=== PATIENT | male | born 1960 | race Caucasian/White ===

== ENCOUNTER 2019-10-16 11:02 | Observation (INO) | payer BC, SELFPAY ==
[2019-10-16] VITALS (22 sets, daily range): BP systolic 135–170; BP diastolic 73–95; PULSE 43–73; RESP 12–24; TEMP 36.2–37.1; O2SAT 94–100; BMI 29.2
--- NOTE | 2019-10-16 | PATH_ITS ---
[facility] Accession Number: [id number] . 01 Material submitted: . appendix - APPENDIX . 01 Clinical history: . LOWER ABDOMINAL PAIN . 02 Diagnosis: Appendix, Appendectomy: Acute suppurative appendicitis with serositis. Negative for dysplasia or malignancy. [facility] 10/19/2019 1207 Local . 02 Electronically signed: . Alena Cannon MD, Pathologist NPI- [id number] . 01 Gross description: . Received in formalin, labeled with the patient's name, MRN and appendix, is a 5.5 cm in length by 0.6 cm in diameter intact appendix with an attached 5.0 x 2.0 x 0.9 cm mesoappendix. The external surface of the appendix is brown-hernandez and smooth with attached hernandez-white exudate. The appendiceal wall measures up to 0.3 cm and the lumen measures 0.2 cm. The lumen contains brown-hernandez fecal material. No discrete lesions are identified. The appendiceal margin (inked black), mid-appendix, and entire distal tip of the appendix, bisected, are submitted in cassette A1. (SD/cmc10 [id number]) /MRV 10/18/2019 2344 Local . 02 Pathologist provided ICD-10: K35.80 . 02 CPT . 874159 Performed at: 01 [facility] [address], [place], [place] [id number] MD Doni Aguilar MD Phone: [phone] Performed at: 02 [facility] [address] [place], [place] [id number] MD Alena Cannon MD Phone: [phone]
[2019-10-16 11:29] LABS: Add Manual Diff / Slide Review NO; Basophils Absolute Auto 0 /uL (0-100); Basophils Percent Auto 0.6 % (0-2); Eosinophils Absolute Auto 100 /uL (0-450); Eosinophils Percent Auto 1.5 % (2-4); Lymphocytes Absolute Auto 2000 /uL (1100-4500); Mean Corpuscular HGB Conc 34.1 % (30-36); Mean Corpuscular Hemoglobin 31.1 PG (26-34); Mean Corpuscular Volume 91.3 fL (80-100); Monocytes Absolute Auto 700 /uL (0-900); Monocytes Percent Auto 9.2 % (3-14); Neutrophils Absolute Auto 4600 /uL (1500-7000); Neutrophils Percent Auto 61.7 % (50-75); Platelet Count 225 X10^3/uL (150-400); Red Blood Cell Count 5.15 X10^6/uL (4.5-5.9); Red Cell Distribution Width 13.7 % (11.6-14.8); White Blood Cell Count 7.5 X10^3/uL (4.5-11.0)
[2019-10-16 11:35] LABS: Prothrombin Time 11.7 SECONDS (10.1-12.7)
[2019-10-16 11:38] LABS: PTT Partial Thromboplastin Tim 30 SECONDS (26.4-36.2)
--- NOTE | 2019-10-16 11:38 | ED.ABDPAIN ---
HPI - Abdominal Pain <KERRI Taylor-BC - Last Filed: 10/16/19 15:04> General Chief Complaint: Abdominal Pain Stated Complaint: lower abdominal pain Time Seen by Provider: 10/16/19 11:17 Source: patient Mode of arrival: Family Vehicle Limitations: no limitations History of Present Illness HPI narrative: The patient is a very pleasant 59-year-old male nonsmoker with history of GERD who presents with a chief complaint of lower abdominal pain and cramping since last night. He states that it comes and goes, started in his right lower quadrant, radiates around to his left lower quadrant. He denies any fevers. He complains of nausea but no vomiting. He does have decreased appetite. He had a loose bowel movement this morning. He has not taken anything to feel better. Denies any dysuria urgency or frequency. Denies any testicular pain. He denies any abdominal surgical history or abdominal medical history. He states that he started having pain at 3:00 a.m. yesterday. Related Data Home Medications Medication Instructions Recorded Confirmed latanoprost 1 drp EYE-BOTH DAILY 10/16/19 10/16/19 omeprazole 20 mg PO DAILY 10/16/19 10/16/19 phenylephrine HCl 10 mg PO Q4-6H PRN 10/16/19 10/16/19 Allergies Allergy/AdvReac Type Severity Reaction Status Date / Time amoxicillin Allergy Hives Verified 10/16/19 11:14 Review of Systems <KERRI Taylor-BC - Last Filed: 10/16/19 15:04> Review of Systems Narrative: GENERAL: Denies chills, fatigue, malaise, fever, sweats. HEENT: Denies sinus pain, ear pain, sore throat, difficulty swallowing, dizziness. RESPIRATORY: Denies dyspnea, cough, wheezing, hemoptysis, sputum. CARDIOVASCULAR: Denies chest pain, palpitations, orthopnea, edema, GASTROINTESTINAL: See HPI : Denies dysuria, frequency, incontinence, hematuria, urinary retention. MUSCULOSKELETAL: denies weakness, joint pain, or bony pain SKIN: Denies rash, skin lesions, or other NEUROLOGIC: Denies weakness, headache, numbness, change in speech, confusion, seizures, incoordination. PSYCHIATRIC: No concerning psychosocial issues. 12 point review of systems is negative except for those stated above Patient History <SAMIA Taylor - Last Filed: 10/16/19 15:04> Medical History (Updated 10/16/19 @ 14:56 by SAMIA Taylor) GERD (gastroesophageal reflux disease) (Acute) Surgical History (Updated 10/16/19 @ 15:09 by Alena Boykin RN) Status post left foot surgery (Acute) Social History household members: spouse Smoking Status: Never smoker alcohol intake: current Smoking Status: Never smoker alcohol intake frequency: holidays/special occasions only Substance Use Type: does not use Exam <SAMIA Taylor - Last Filed: 10/16/19 15:04> Narrative Exam Narrative: GENERAL: This is a well-nourished, well-developed patient, no acute distress lying on stretcher HEAD: Atraumatic. Normocephalic. No temporal or scalp tenderness. EYES: Pupils equal round and reactive. Extraocular motions intact. No scleral icterus. No injection or drainage. ENT: Nose without bleeding, purulent drainage or septal hematoma. Throat without erythema, tonsillar hypertrophy or exudate. Uvula midline. Airway patent. NECK: Trachea midline. No JVD or lymphadenopathy. Supple, nontender, no meningeal signs. CARDIOVASCULAR: Regular rate and rhythm RESPIRATORY: Clear to auscultation. Breath sounds equal bilaterally. No wheezes, rales, or rhonchi. No cough. No increased respiratory effort. No accessory muscle use. GASTROINTESTINAL: Abdomen soft, active bowel sounds all 4 quadrants, no pain to palpation right upper quadrant left upper quadrant, negative [place] sign. Pain to palpation right lower quadrant, pain to palpation left lower quadrant with rebound tenderness. Slight guarding noted both lower quadrants. Negative heel tap test. EXTREMITIES: No clubbing, cyanosis, or edema. No joint tenderness, effusion, or edema noted. BACK: Nontender without deformity or crepitance. No flank tenderness. NEURO: AOx3. SKIN: No rash or erythema on visible skin Initial Vital Signs Initial Vital Signs: Vital Signs Temperature 98.2 F 10/16/19 11:07 Pulse Rate 59 L 10/16/19 11:07 Respiratory Rate 18 10/16/19 11:07 Pulse Oximetry 100 10/16/19 11:07 <Jenny Gonzalez MD - Last Filed: 10/16/19 16:19> Initial Vital Signs Initial Vital Signs: Vital Signs Temperature 98.2 F 10/16/19 11:07 Pulse Rate 59 L 10/16/19 11:07 Respiratory Rate 18 10/16/19 11:07 Pulse Oximetry 100 10/16/19 11:07 Scores <SAMIA Taylor - Last Filed: 10/16/19 15:04> GCS Bill coma scale eye opening: Spontaneous Bill coma scale verbal response: Orientated [place] coma scale motor response: Obey commands [place] coma scale total score: 15 Course <SAMIA Taylor - Last Filed: 10/16/19 15:04> Orders Ordered: ED Orders 10/16/19 11:15 EKG-12 Lead Stat 10/16/19 11:25 Complete Blood Count AUTO DIFF Stat Comprehensive Metabolic Panel Stat Lipase Stat Partial Thromboplastin Time Stat Prothrombin Time INR Stat 10/16/19 12:20 CT abdomen pelvis w con Stat Ciprofloxacin (Cipro) 400 mg in 200 mls @ 200 mls/hr IV NOW [facility] Last Infusion: 10/16/19 14:54 Dose: 0 mls/hr Documented by: Admin: 10/16/19 13:41 Dose: 200 mls/hr Documented by: BONITA Lactated Ringer's (Lactated Ringers) 1,000 mls @ 42 mls/hr IV CONT TONY Last Admin: 10/16/19 16:08 Dose: 42 mls/hr Documented by: ORALIA Consultations Consultation #1: Spoke with Radiology, who states that patient has acute appendicitis. The spoke with the lab regarding rapid coronavirus testing and discussed findings with patient. Plan is to call surgery. Time: 13:17 Vital Signs Vital signs: Vital Signs - 8 hr 10/16/19 11:07 10/16/19 11:43 10/16/19 11:44 Temperature 98.2 F Pulse Rate 59 L 57 L 56 L Respiratory Rate 18 24 14 Blood Pressure 170/89 H Pulse Oximetry 100 95 98 10/16/19 12:00 10/16/19 12:30 10/16/19 13:00 Temperature Pulse Rate 59 L 54 L 56 L Respiratory Rate 18 18 24 Blood Pressure Pulse Oximetry 98 98 98 10/16/19 14:00 Temperature Pulse Rate 57 L Respiratory Rate 18 Blood Pressure Pulse Oximetry 97 <Jenny Gonzalez MD - Last Filed: 10/16/19 16:19> Orders Ordered: ED Orders 10/16/19 11:15 EKG-12 Lead Stat 10/16/19 11:25 Complete Blood Count AUTO DIFF Stat Comprehensive Metabolic Panel Stat Lipase Stat Partial Thromboplastin Time Stat Prothrombin Time INR Stat 10/16/19 12:20 CT abdomen pelvis w con Stat Ciprofloxacin (Cipro) 400 mg in 200 mls @ 200 mls/hr IV NOW [facility] Last Infusion: 10/16/19 14:54 Dose: 0 mls/hr Documented by: Admin: 10/16/19 13:41 Dose: 200 mls/hr Documented by: BONITA Lactated Ringer's (Lactated Ringers) 1,000 mls @ 42 mls/hr IV CONT [facility] Last Admin: 10/16/19 16:08 Dose: 42 mls/hr Documented by: ORALIA Vital Signs Vital signs: Vital Signs - 8 hr 10/16/19 11:07 10/16/19 11:43 10/16/19 11:44 Temperature 98.2 F Pulse Rate 59 L 57 L 56 L Respiratory Rate 18 24 14 Blood Pressure 170/89 H Pulse Oximetry 100 95 98 10/16/19 12:00 10/16/19 12:30 10/16/19 13:00 Temperature Pulse Rate 59 L 54 L 56 L Respiratory Rate 18 18 24 Blood Pressure Pulse Oximetry 98 98 98 10/16/19 14:00 Temperature Pulse Rate 57 L Respiratory Rate 18 Blood Pressure Pulse Oximetry 97 MDM - Abdominal Pain <KERRI Taylor-NIKOLAS - Last Filed: 10/16/19 15:04> Differential Diagnosis Differential diagnosis: Likely abdominal pain, acute appendicitis, constipation and diverticulitis Lab Data Result diagrams: 10/16/19 11:25 10/16/19 11:25 Labs: Lab Results 10/16/19 10/16/19 10/16/19 Range/Units 11:25 11:25 11:25 WBC 7.5 (4.5-11.0) X10^3/uL RBC 5.15 (4.5-5.9) X10^6/uL Hgb 16.0 (13.5-17.5) g/dL Hct 47.0 (41-53) % MCV 91.3 (80-100) fL MCH 31.1 (26-34) PG MCHC 34.1 (30-36) % RDW 13.7 (11.6-14.8) % Plt Count 225 (150-400) X10^3/uL Neut % (Auto) 61.7 (50-75) % Lymph % (Auto) 27.0 (25-40) % [place] % (Auto) 9.2 (3-14) % Eos % (Auto) 1.5 L (2-4) % Baso % (Auto) 0.6 (0-2) % Neut # (Auto) 4600 (7956-8042) /uL Lymph # (Auto) 2000 (3184-6896) /uL [place] # (Auto) 700 (0-900) /uL Eos # (Auto) 100 (0-450) /uL Baso # (Auto) 0 (0-100) /uL PT 11.7 (10.1-12.7) SECONDS INR 1.0 (0.9-1.3) APTT 30 (26.4-36.2) SECONDS Sodium 137 (137-145) mmol/L Potassium 4.2 (3.4-5.1) mmol/L Chloride 103 (98-107) mmol/L Carbon Dioxide 28 (22-32) mmol/L BUN 10 (9-20) mg/dL Creatinine 0.82 (0.66-1.25) mg/dL Estimated GFR > 60.0 (>60) mL/min BUN/Creatinine Ratio 12.2 (6-22) Glucose 105 H (70-100) mg/dL Calcium 9.6 (8.4-10.2) mg/dL Total Bilirubin 1.3 (0.2-1.3) mg/dL AST 36 (17-59) IU/L ALT 39 (<50) IU/L Alkaline Phosphatase 98 (38-126) U/L Total Protein 8.5 H (6.3-8.2) g/dL Albumin 4.9 (3.5-5.0) g/dL Globulin 3.6 (1.7-4.1) g/dL Albumin/Globulin Ratio 1.4 (1.0-2.8) Lipase 67 (23-300) U/L COVID-19 PCR (Negative) 10/16/19 Range/Units 13:15 WBC (4.5-11.0) X10^3/uL RBC (4.5-5.9) X10^6/uL Hgb (13.5-17.5) g/dL Hct (41-53) % MCV (80-100) fL MCH (26-34) PG MCHC (30-36) % RDW (11.6-14.8) % Plt Count (150-400) X10^3/uL Neut % (Auto) (50-75) % Lymph % (Auto) (25-40) % [place] % (Auto) (3-14) % Eos % (Auto) (2-4) % Baso % (Auto) (0-2) % Neut # (Auto) (3029-6235) /uL Lymph # (Auto) (7500-9916) /uL [place] # (Auto) (0-900) /uL Eos # (Auto) (0-450) /uL Baso # (Auto) (0-100) /uL PT (10.1-12.7) SECONDS INR (0.9-1.3) APTT (26.4-36.2) SECONDS Sodium (137-145) mmol/L Potassium (3.4-5.1) mmol/L Chloride (98-107) mmol/L Carbon Dioxide (22-32) mmol/L BUN (9-20) mg/dL Creatinine (0.66-1.25) mg/dL Estimated GFR (>60) mL/min BUN/Creatinine Ratio (6-22) Glucose (70-100) mg/dL Calcium (8.4-10.2) mg/dL Total Bilirubin (0.2-1.3) mg/dL AST (17-59) IU/L ALT (<50) IU/L Alkaline Phosphatase (38-126) U/L Total Protein (6.3-8.2) g/dL Albumin (3.5-5.0) g/dL Globulin (1.7-4.1) g/dL Albumin/Globulin Ratio (1.0-2.8) Lipase (23-300) U/L COVID-19 PCR Negative (Negative) Point of care testing: Urine Dip Bedside Urine Glucose Negative Bedside Urine Bilirubin - Negative Bedside Urine Ketone - Negative Urine Specific [place] 1.015 Bedside Urine Occult Blood - Negative Bedside Urine pH 6.0 Bedside Urine Protein - Negative Bedside Urine Urobilinogen - Negative Bedside Urine Nitrite - Negative Bedside Urine Leukocytes - Negative Esterase Imaging Data CT scan - abdomen/pelvis: Radiologist's Impression: [address] [place] [id number] Scan Report Signed Patient: Elan Saab AMR#: [id number] : 1960Acct:[id number] Age/Sex: 59 / MDate of Service: 10/16/19 Loc: ED Accession Number: [id number] Procedure: CT abdomen pelvis w con Ordering Provider: Carina Samano-BC PROCEDURE: CT ABDOMEN PELVIS W CON INDICATIONS: RLQ, LLQ pain TECHNIQUE: After the administration of intravenous contrast, 5 mm thick sections acquired from the diaphragm to the symphysis. 5 mm coronal and sagittal reformats were acquired. For radiation dose reduction, the following was used: automated exposure control, adjustment of mA and/or kV according to patient size. COMPARISON: [facility], CT, ABDOMEN/PELVIS WITH CONTRAST, 06/22/2014, 13:54. FINDINGS: Image quality: Excellent. ABDOMEN: Lung bases: There is a small carlito-fissural nodule in the right lower lobe along the major fissure measuring up to 3 mm which appears stable compared to the prior study. Mild dependent atelectasis is demonstrated bilaterally. Heart size is normal. There is a small hiatal hernia. Solid organs: There is diffuse hypoattenuation of the liver consistent with fatty infiltration.. The gallbladder appears within normal limits without calcified gallstones. Biliary system is non-dilated. Pancreas enhances normally. No peripancreatic fat stranding or fluid collections. No pancreatic duct dilatation. The spleen is normal in size. No adrenal nodules. Kidneys demonstrate no hydronephrosis. Peritoneum and bowel: Bowel loops demonstrate normal wall thickness and caliber. The appendix is distended with mild wall thickening and periappendiceal fat stranding consistent with acute appendicitis. No free fluid or air. Nodes and vessels: No retroperitoneal or mesenteric adenopathy by size criteria. Aorta and inferior vena cava are normal in size. Miscellaneous: No ventral hernias. PELVIS: Genitourinary: Bladder wall thickness is normal. Miscellaneous: No inguinal hernias or adenopathy. Bones: No suspicious bony lesions. No vertebral body compression fractures. IMPRESSION: 1. Findings consistent with acute appendicitis without abscess or other evidence of perforation. Findings discussed with Carina Milan on October 16, 2019 at 1:05 p.m. Dictated by: Doni Benítez M.D. on 10/16/2019 at 12:45 Approved by: Doni Benítez M.D. on 10/16/2019 at 13:14 ECG Data Attestation: I personally reviewed and interpreted this ECG as follows: Interpretation: Sinus bradycardia. Ventricular rate 55. P.r. interval 150. QRS 96. No ectopy noted. viewed by Dr Gonzalez MDM Narrative Medical decision making narrative: The patient is a delightful 59-year-old male who presents with a chief complaint of abdominal pain since yesterday. He has no leukocytosis, though given his pain on exam, I obtained a CT abdomen pelvis with contrast. This was concerning for acute appendicitis. Given this finding, I spoke with Luis A,, surgery on-call, who suggested giving the patient ciprofloxacin due to his allergy to amoxicillin. Patient states he has tolerated Cipro in the past. Rapid coronavirus testing was obtained given facility protocol. Patient declined pain and nausea meds throughout his stay in the emergency department, remained NPO sister any breakfast this morning at 7:30 a.m.. Surgery came down to evaluate the patient elected to take him to the operating room. Patient was transferred to OR staff care at approximately 3:00 p.m.. He declined pain and nausea meds throughout his stay in the emergency department, expressed appreciation for care today. He states understanding of surgery, and states that ?things are going as best as possible. <Jenny Gonzalez MD - Last Filed: 10/16/19 16:19> Lab Data Labs: Lab Results 10/16/19 10/16/19 10/16/19 Range/Units 11:25 11:25 11:25 WBC 7.5 (4.5-11.0) X10^3/uL RBC 5.15 (4.5-5.9) X10^6/uL Hgb 16.0 (13.5-17.5) g/dL Hct 47.0 (41-53) % MCV 91.3 (80-100) fL MCH 31.1 (26-34) PG MCHC 34.1 (30-36) % RDW 13.7 (11.6-14.8) % Plt Count 225 (150-400) X10^3/uL Neut % (Auto) 61.7 (50-75) % Lymph % (Auto) 27.0 (25-40) % [place] % (Auto) 9.2 (3-14) % Eos % (Auto) 1.5 L (2-4) % Baso % (Auto) 0.6 (0-2) % Neut # (Auto) 4600 (1050-6726) /uL Lymph # (Auto) 2000 (4912-8085) /uL [place] # (Auto) 700 (0-900) /uL Eos # (Auto) 100 (0-450) /uL Baso # (Auto) 0 (0-100) /uL PT 11.7 (10.1-12.7) SECONDS INR 1.0 (0.9-1.3) APTT 30 (26.4-36.2) SECONDS Sodium 137 (137-145) mmol/L Potassium 4.2 (3.4-5.1) mmol/L Chloride 103 (98-107) mmol/L Carbon Dioxide 28 (22-32) mmol/L BUN 10 (9-20) mg/dL Creatinine 0.82 (0.66-1.25) mg/dL Estimated GFR > 60.0 (>60) mL/min BUN/Creatinine Ratio 12.2 (6-22) Glucose 105 H (70-100) mg/dL Calcium 9.6 (8.4-10.2) mg/dL Total Bilirubin 1.3 (0.2-1.3) mg/dL AST 36 (17-59) IU/L ALT 39 (<50) IU/L Alkaline Phosphatase 98 (38-126) U/L Total Protein 8.5 H (6.3-8.2) g/dL Albumin 4.9 (3.5-5.0) g/dL Globulin 3.6 (1.7-4.1) g/dL Albumin/Globulin Ratio 1.4 (1.0-2.8) Lipase 67 (23-300) U/L COVID-19 PCR (Negative) 10/16/19 Range/Units 13:15 WBC (4.5-11.0) X10^3/uL RBC (4.5-5.9) X10^6/uL Hgb (13.5-17.5) g/dL Hct (41-53) % MCV (80-100) fL MCH (26-34) PG MCHC (30-36) % RDW (11.6-14.8) % Plt Count (150-400) X10^3/uL Neut % (Auto) (50-75) % Lymph % (Auto) (25-40) % [place] % (Auto) (3-14) % Eos % (Auto) (2-4) % Baso % (Auto) (0-2) % Neut # (Auto) (2338-5996) /uL Lymph # (Auto) (4449-2536) /uL [place] # (Auto) (0-900) /uL Eos # (Auto) (0-450) /uL Baso # (Auto) (0-100) /uL PT (10.1-12.7) SECONDS INR (0.9-1.3) APTT (26.4-36.2) SECONDS Sodium (137-145) mmol/L Potassium (3.4-5.1) mmol/L Chloride (98-107) mmol/L Carbon Dioxide (22-32) mmol/L BUN (9-20) mg/dL Creatinine (0.66-1.25) mg/dL Estimated GFR (>60) mL/min BUN/Creatinine Ratio (6-22) Glucose (70-100) mg/dL Calcium (8.4-10.2) mg/dL Total Bilirubin (0.2-1.3) mg/dL AST (17-59) IU/L ALT (<50) IU/L Alkaline Phosphatase (38-126) U/L Total Protein (6.3-8.2) g/dL Albumin (3.5-5.0) g/dL Globulin (1.7-4.1) g/dL Albumin/Globulin Ratio (1.0-2.8) Lipase (23-300) U/L COVID-19 PCR Negative (Negative) Point of care testing: Urine Dip Bedside Urine Glucose Negative Bedside Urine Bilirubin - Negative Bedside Urine Ketone - Negative Urine Specific [place] 1.015 Bedside Urine Occult Blood - Negative Bedside Urine pH 6.0 Bedside Urine Protein - Negative Bedside Urine Urobilinogen - Negative Bedside Urine Nitrite - Negative Bedside Urine Leukocytes - Negative Esterase Discharge Plan Departure Patient Disposition: Admitted to Surgery Clinical Impression: Acute appendicitis Qualifiers: Acute appendicitis type: unspecified acute appendicitis type Qualified Code(s): K35.80 - Unspecified acute appendicitis Discharge Date/Time: 10/16/19 14:56 Admit Date/Time: 10/16/19 14:01 Admit Provider: Troy Gunn <Jenny Gonzalez MD - Last Filed: 10/16/19 16:19> Cosign ED Attending Cosignature Attestation: I was immediately available in the department for consultation throughout this patient's visit. I agree with documentation as above. Jenny Gonzalez MD
[2019-10-16 11:40] LABS: Alanine Aminotransferase 39 IU/L (<50); Albumin 4.9 g/dL (3.5-5.0); Albumin Globulin Ratio 1.4 (1.0-2.8); Alkaline Phosphatase 98 U/L (38-126); Aspartate Aminotransferase 36 IU/L (17-59); BUN Creatinine Ratio 12.2 (6-22); Bilirubin Total 1.3 mg/dL (0.2-1.3); Blood Urea Nitrogen 10 mg/dL (9-20); Calcium 9.6 mg/dL (8.4-10.2); Carbon Dioxide 28 mmol/L (22-32); Chloride 103 mmol/L (98-107); Estimated Glomerular Filt Rate > 60.0 mL/min (>60); Globulin 3.6 g/dL (1.7-4.1); Glucose 105 mg/dL (70-100); HEMOLYSIS < 15 (0-50); Lipase 67 U/L (23-300); Potassium 4.2 mmol/L (3.4-5.1); Sodium 137 mmol/L (137-145); Total Protein 8.5 g/dL (6.3-8.2)
--- NOTE | 2019-10-16 12:20 | DI.CT.S_ITS ---
PROCEDURE: CT ABDOMEN PELVIS W CON INDICATIONS: RLQ, LLQ pain TECHNIQUE: After the administration of intravenous contrast, 5 mm thick sections acquired from the diaphragm to the symphysis. 5 mm coronal and sagittal reformats were acquired. For radiation dose reduction, the following was used: automated exposure control, adjustment of mA and/or kV according to patient size. COMPARISON: [facility], CT, ABDOMEN/PELVIS WITH CONTRAST, 06/22/2014, 13:54. FINDINGS: Image quality: Excellent. ABDOMEN: Lung bases: There is a small carlito-fissural nodule in the right lower lobe along the major fissure measuring up to 3 mm which appears stable compared to the prior study. Mild dependent atelectasis is demonstrated bilaterally. Heart size is normal. There is a small hiatal hernia. Solid organs: There is diffuse hypoattenuation of the liver consistent with fatty infiltration.. The gallbladder appears within normal limits without calcified gallstones. Biliary system is non-dilated. Pancreas enhances normally. No peripancreatic fat stranding or fluid collections. No pancreatic duct dilatation. The spleen is normal in size. No adrenal nodules. Kidneys demonstrate no hydronephrosis. Peritoneum and bowel: Bowel loops demonstrate normal wall thickness and caliber. The appendix is distended with mild wall thickening and periappendiceal fat stranding consistent with acute appendicitis. No free fluid or air. Nodes and vessels: No retroperitoneal or mesenteric adenopathy by size criteria. Aorta and inferior vena cava are normal in size. Miscellaneous: No ventral hernias. PELVIS: Genitourinary: Bladder wall thickness is normal. Miscellaneous: No inguinal hernias or adenopathy. Bones: No suspicious bony lesions. No vertebral body compression fractures. IMPRESSION: 1. Findings consistent with acute appendicitis without abscess or other evidence of perforation. Findings discussed with Carina Milan on October 16, 2019 at 1:05 p.m. Dictated by: Doni Benítez M.D. on 10/16/2019 at 12:45 Approved by: Doni Benítez M.D. on 10/16/2019 at 13:14
[2019-10-16] MEDS: CIPROFLOXACIN 400 MG/200 ML PIGGYBACK 200 MG IV (13:41)
--- NOTE | 2019-10-16 14:02 | PC.NURSE ---
Last PO intake 0700. Surgical Consent signed and placed in chart. Pt waiting for the OR. Pt updated on plan of care. Declines pain medication at this time.
--- NOTE | 2019-10-16 14:05 | PM.HP.1 ---
History of Present Illness History of Present Illness Date Patient Seen: 10/16/19 Time Patient Seen: 14:06 Chief complaint: lower abdominal pain Narrative: 59-year-old white male developed lower abdominal pain 3:00 a.m. yesterday morning. Pain has gradually worsened and is now centered in the right lower quadrant. Patient has anorexia and nausea but no vomiting he came to the emergency department with the above complaints. Patient History Medical History GERD (gastroesophageal reflux disease) (Acute) Family & Social History Safety & Behavioral: Feels Safe in Current Yes Environment Been Physically Hurt or No Threatened By a Person Tobacco & Substance use: Smoking Status Never smoker alcohol intake frequency holiday/special occasion Substance Use Type does not use Meds Home Medications and Allergies Home Medications Medication Instructions Recorded Confirmed Type latanoprost drp EYE-BOTH DAILY 10/16/19 History omeprazole mg PO DAILY 10/16/19 History Allergies Allergy/AdvReac Type Severity Reaction Status Date / Time amoxicillin Allergy Hives Verified 10/16/19 11:14 Review of Systems Review of Systems ROS: Yes All systems reviewed with the patient and are negative except as otherwise documented Exam Vital Signs (past 8 hours): - 10/16/19 11:07 Temperature 98.2 F Pulse Rate 59 L Respiratory Rate 18 Pulse Oximetry 100 Oxygen Delivery Method Room Air Narrative Exam Narrative: Patient is alert and oriented complaining of right lower quadrant abdominal pain Ears nose and throat are normal Neck no adenopathy Lungs are clear Heart regular rhythm no murmur Abdomen upper abdomen is soft and nontender. Right lower quadrant exquisitely tender with rebound tenderness and guarding. There is positive Rovsing sign. No masses. Rectal deferred at this time. Extremities are normal neurologic intact Objective Labs Result Diagrams: 10/16/19 11:25 10/16/19 11:25 Labs: Laboratory Results - last 24 hr 10/16/19 10/16/19 10/16/19 11:25 11:25 11:25 WBC 7.5 RBC 5.15 Hgb 16.0 Hct 47.0 MCV 91.3 MCH 31.1 MCHC 34.1 RDW 13.7 Plt Count 225 Neut % (Auto) 61.7 Lymph % (Auto) 27.0 [place] % (Auto) 9.2 Eos % (Auto) 1.5 L Baso % (Auto) 0.6 Neut # (Auto) 4600 Lymph # (Auto) 2000 [place] # (Auto) 700 Eos # (Auto) 100 Baso # (Auto) 0 PT 11.7 INR 1.0 APTT 30 Sodium 137 Potassium 4.2 Chloride 103 Carbon Dioxide 28 BUN 10 Creatinine 0.82 Estimated GFR > 60.0 BUN/Creatinine Ratio 12.2 Glucose 105 H Calcium 9.6 Total Bilirubin 1.3 AST 36 ALT 39 Alkaline Phosphatase 98 Total Protein 8.5 H Albumin 4.9 Globulin 3.6 Albumin/Globulin Ratio 1.4 Lipase 67 Assessment & Plan Assessment & Plan narrative: Patient with clinical and radiographic evidence of acute with appendicitis. Abdominal CT revealing uncomplicated acute appendicitis. Patient is allergic to amoxicillin and has received Cipro IV. He will have open appendectomy this afternoon. Patient has no unanswered questions and agrees with the plan.
[2019-10-16 14:32] LABS: COVID19 -Nasal RAPID Negative (Negative)
[2019-10-16] MEDS: LACTATED RINGERS 1,000 ML 42 ML IV ×2 (16:08→17:01)
--- NOTE | 2019-10-16 16:31 | SUR.OPER ---
Supine on padded OR bed, head on pillow, arms secured on padded arm boards at <90 degrees abduction, legs uncrossed, safety belt at thigh, tape over blanket over lower legs.
[2019-10-16] MEDS: BUPIVACAINE 0.5% W/ EPI (PF) 30 ML VIAL INJ (16:40)
[2019-10-16] MEDS: SODIUM CHLORIDE IRRIG SOLUTION 1,000 ML, BACITRACIN 50,000 UNIT IRR (16:41)
[2019-10-16] MEDS: BACITRACIN OINT 0.9 GM PCKT 1 APPLIC TOP (16:42)
--- NOTE | 2019-10-16 16:52 | PM.OP.1 ---
Operative Date/Time/Diagnoses Date of procedure: 10/16/19 Time of procedure: 16:52 Pre-op diagnosis: Acute uncomplicated appendicitis Post-op diagnosis: same Procedure & Clinicians Same procedure as scheduled: Yes Indications: Acute uncomplicated appendicitis noted on CT scan of the abdomen Surgeon: Troy Gunn Click Yes if Unassisted: Yes Anesthesia Type: General Operative Notes Findings: Acute uncomplicated appendicitis Closure Type: primary Specimen(s): other (Appendix and appendiceal cultures) Estimated Blood Loss (mL): 50 Blood products transfused: none Procedure in detail: Patient was given a general endotracheal anesthetic prepped and draped sterile fashion exposure of the right lower quadrant of the abdomen. Patient was properly identified during surgical pause. Standard Damir-Jeff incision is made over McBurney's point. Oblique muscles split and agreed iron fashion exposing the peritoneum which was elevated and entered so as to avoid injury to the underlying structures. The cecum was rotated into the wound. The appendix was elevated. The appendix was acutely inflamed covered with fibrin and was edematous but not perforated. There is no abscess. The mesoappendix was divided between clamps the vessels ligated with 2 0 Vicryl there was excellent hemostasis. The base of the appendix was closed over a TA 30? staple line. Appendix was crossclamped above the staple line and divided. The appendix was thus removed and cultured. The staple line was intact. There is no cecal leaking. There was no bleeding from the mesoappendix. The right lower quadrant was irrigated with copious sterile saline aspirated dry there was no bleeding. Peritoneum closed with a running 2 0 Vicryl. Oblique fascia closed with 1. PDS. Subcu irrigated with saline. Skin stapled. Sterile dressings applied procedures well tolerated. Complications: none Post-operative Condition: stable Disposition: PACU
[2019-10-16] MEDS: OXYCODONE/ACETAMINOPHEN 5/325 TABLET 1 TAB PO (17:39)
--- NOTE | 2019-10-16 17:45 | SUR.PHASEI ---
HR in the 40s. Patient denied feeling lightheaded or dizzy.
--- NOTE | 2019-10-16 17:47 | SUR.PHASEI ---
patient reported pain level of 6/10 but declined additional narcotics.
--- NOTE | 2019-10-16 18:02 | SUR.PHASEI ---
Report called to Debora
--- NOTE | 2019-10-16 18:24 | SUR.PHASEI ---
Patient transferred to the floor with belongings bag and glasses. VS stable. IV saline locked. Abd dressing CDI. Report given to Debora.
--- NOTE | 2019-10-16 19:12 | PC.ADMIT ---
[facility] Admission Note: The patient,Elan Saab,59 y/o, was given written information regarding hospital policies, unit procedures and contact persons. Patient's smoking status: Never smoker. Pt arrived from PACU. A/O. drsg c/d/i. supportive spouse arrived. Oriented to room and call system. Pt verbalized he will call for needs. Vital Signs - 8 hr 10/16/19 11:43 10/16/19 11:44 10/16/19 12:00 Temperature Pulse Rate 57 L 56 L 59 L Respiratory Rate 24 14 18 Blood Pressure 170/89 H Pulse Oximetry 95 98 98 10/16/19 12:30 10/16/19 13:00 10/16/19 14:00 Temperature Pulse Rate 54 L 56 L 57 L Respiratory Rate 18 24 18 Blood Pressure Pulse Oximetry 98 98 97 10/16/19 14:30 10/16/19 14:51 10/16/19 15:13 Temperature 98.7 F 98 F Pulse Rate 55 L 59 L 54 L Respiratory Rate 13 20 16 Blood Pressure 166/83 H 167/88 H Pulse Oximetry 98 98 99 10/16/19 17:20 10/16/19 17:25 10/16/19 17:30 Temperature 97.1 F L Pulse Rate 65 56 L 59 L Respiratory Rate 14 12 12 Blood Pressure 141/79 H 140/76 135/76 Pulse Oximetry 96 96 98 10/16/19 17:35 10/16/19 17:48 10/16/19 18:00 Temperature 97.9 F Pulse Rate 55 L 43 L 47 L Respiratory Rate 16 12 16 Blood Pressure 138/78 147/86 H 152/81 H Pulse Oximetry 98 96 97 10/16/19 18:15 10/16/19 18:45 Temperature 97.2 F L 97.5 F L Pulse Rate 48 L 51 L Respiratory Rate 18 16 Blood Pressure 150/95 H 141/78 H Pulse Oximetry 97 97
[2019-10-16] MEDS: DEXTROSE 5%-0.45% NS 1,000 ML 84 ML IV (19:44)
[2019-10-16] MEDS: KETOROLAC 30 MG/ML VIAL IV (21:23)
[2019-10-17] MEDS: KETOROLAC 30 MG/ML VIAL IV (05:18)
[2019-10-17] MEDS: PANTOPRAZOLE 20 MG TABLET PO (05:19)
[2019-10-17 05:52] VITALS: BP 139/84; PULSE 65; RESP 16; TEMP 36.9; O2SAT 97
[2019-10-17 08:53] VITALS: BP 132/66; PULSE 57; RESP 16; TEMP 36.6; O2SAT 97
--- NOTE | 2019-10-17 09:14 | P.DS_ITS ---
History of Present Illness History of Present Illness Chief complaint: lower abdominal pain Narrative: 59-year-old white male developed lower abdominal pain 3:00 a.m. yesterday morning. Pain has gradually worsened and is now centered in the right lower quadrant. Patient has anorexia and nausea but no vomiting he came to the emergency department with the above complaints. Discharge Providers Provider Date of admission: 10/16/19 14:01 Discharge Date: 10/17/19 Primary care physician: Mohsen Sheppard Discharge provider: Troy Gunn MD Summary Hospital Course Discharge Diagnosis: Acute uncomplicated appendicitis Hospital Course: Patient was admitted yesterday afternoon through the emergency department with classic signs symptoms and a CT scan showing acute uncomplicated appendicitis. He was given preoperative Cipro. Appendectomy was done soon thereafter. Patient was observed overnight in observation bed. This morning he has no abdominal pain and only minimal incisional pain. He is tolerating a regular solid diet. His abdomen is soft dressing is dry and intact with no drainage. Patient is discharged today to resume only his pre-admission medications. Does not require prescription analgesics. He will return to his clinic for staple removal next week. Status at Discharge Cognitive/behavioral status at discharge: oriented Functional status at discharge: independent ambulation Overall status at discharge: patient is back to baseline Time Spent with Patient Time spent: Less than 30 minutes Exam Vital Signs (past 8 hours): - 10/17/19 05:52 10/17/19 08:53 Temperature 98.5 F 97.8 F Pulse Rate 65 57 L Respiratory Rate 16 16 Blood Pressure 139/84 132/66 Pulse Oximetry 97 97 Oxygen Delivery Method Room Air Oxygen Flow Rate 0 Objective Labs Result Diagrams: 10/16/19 11:25 10/16/19 11:25 Labs: Laboratory Results - last 24 hr 10/16/19 10/16/19 10/16/19 11:25 11:25 11:25 WBC 7.5 RBC 5.15 Hgb 16.0 Hct 47.0 MCV 91.3 MCH 31.1 MCHC 34.1 RDW 13.7 Plt Count 225 Neut % (Auto) 61.7 Lymph % (Auto) 27.0 Barry % (Auto) 9.2 Eos % (Auto) 1.5 L Baso % (Auto) 0.6 Neut # (Auto) 4600 Lymph # (Auto) 2000 Barry # (Auto) 700 Eos # (Auto) 100 Baso # (Auto) 0 PT 11.7 INR 1.0 APTT 30 Sodium 137 Potassium 4.2 Chloride 103 Carbon Dioxide 28 BUN 10 Creatinine 0.82 Estimated GFR > 60.0 BUN/Creatinine Ratio 12.2 Glucose 105 H Calcium 9.6 Total Bilirubin 1.3 AST 36 ALT 39 Alkaline Phosphatase 98 Total Protein 8.5 H Albumin 4.9 Globulin 3.6 Albumin/Globulin Ratio 1.4 Lipase 67 COVID-19 PCR 10/16/19 13:15 WBC RBC Hgb Hct MCV MCH MCHC RDW Plt Count Neut % (Auto) Lymph % (Auto) Barry % (Auto) Eos % (Auto) Baso % (Auto) Neut # (Auto) Lymph # (Auto) Barry # (Auto) Eos # (Auto) Baso # (Auto) PT INR APTT Sodium Potassium Chloride Carbon Dioxide BUN Creatinine Estimated GFR BUN/Creatinine Ratio Glucose Calcium Total Bilirubin AST ALT Alkaline Phosphatase Total Protein Albumin Globulin Albumin/Globulin Ratio Lipase COVID-19 PCR Negative Discharge Plan Discharge Plan Patient Disposition: Home Discharge orders & Medications Prescriptions: Continued latanoprost 0.005 % drops 1 drp EYE-BOTH DAILY RF: 0 omeprazole 20 mg capsule,delayed release(DR/EC) 20 mg PO DAILY RF: 0 phenylephrine HCl 5 mg Tablet 10 mg PO Q4-6H PRN (Reason: Sinus Symptoms) RF: 0 Follow up/Referrals: Mohsen Sheppard [Primary Care Provider] - Diet/Activity/Treatments Diet: Diet as Tolerated Activity: avoid heavy lifting few weeks Skin/Wound/Dressing Care Report to your healthcare provider any signs of infection, such as:: chills, fever, night sweats, increased pain, unusual drainage and unusual redness Dressing: remove tomorrow. may shower with or without dressing . apply new dressing as needed Other wound treatment: have johnie removed in one week Visit Report/Discharge Packet Instructions: DI for an Appendectomy, [facility]: Wound Care Visit Report Forms: Patient Portal/API, Stroke Signs & Symptoms Discharge Data Primary Care Provider: Mohsen Sheppard Attending Provider: Troy Gunn Admit Date/Time: 10/16/19 14:01
--- NOTE | 2019-10-17 09:30 | PC.NURSE ---
Patient VSS, lung sounds clear, patient states he is not having any pain. Patient dressing clean/dry/intact. Pt discharge at 0930, discharge teaching done regarding medications, ss of infection, post op appy, patient verbalized understanding. Will be leaving via private car and wheelchair to home w/ spouse.
== END 2019-10-17 09:39 | disposition home or self-care (01) ==
LOC: ED 11:17 → AC 14:04
PROVIDERS: Admitting Provider Surgery; Emergency Provider Nurse Practitioner Family; PCP Family Medicine; Referring Provider Emergency Medicine; Visit Provider Surgery
PROC: (CPT 44950; principal; 2019-10-16 15:30)
DX: K35.890 Other acute appendicitis without perforation or gangrene (principal); R10.30 Lower abdominal pain, unspecified; K21.9 Gastro-esophageal reflux disease without esophagitis; Z11.59 Encounter for screening for other viral diseases
CPT/HCPCS: 44950; 36415; 74177; 80053; 81003; 83690; 85025; 85610; 85730; 87070; 87075; 87205; 87635; 93005; 96361; 96365; 96375; 99284; G0378; J0330; J0744; J1100; J1885; J2250; J2310; J2405; J2704; J3010

== ENCOUNTER 2022-08-18 09:12 | Emergency (ER) | payer OTHER, SELFPAY ==
[2019-10-16 18:35] VITALS: BMI 29.2
[2022-08-18 09:20] VITALS: BP 184/87; PULSE 65; RESP 18; TEMP 37.4; O2SAT 98; BMI 28.5
--- NOTE | 2022-08-18 09:50 | DI.RAD.S_ITS ---
PROCEDURE: XR HAND LT MIN 3V INDICATIONS: L index finger swelling TECHNIQUE: 3 views of the hand(s) acquired. COMPARISON: None. FINDINGS: Bones: No fractures or dislocations. Carpal bones are normally aligned. No suspicious bony lesions. Degenerative changes of the interphalangeal joints. This is most pronounced at the DIP joint of the little finger. No erosions. Soft tissues: No suspicious soft tissue calcifications. IMPRESSION: 1. No acute abnormality. 2. Mild degenerative changes of the DIP joints including the index finger, however degenerative changes are most severe at the DIP joint of the little finger. Dictated by: Rodriguez Tinajero M.D. on 08/18/2022 at 9:45 Approved by: Rodriguez Tinajero M.D. on 08/18/2022 at 9:46
--- NOTE | 2022-08-18 09:52 | ED.EXTPRO ---
HPI - Extremity Problem General Chief complaint: Extremity Problem,Nontraumatic Stated complaint: Lf hand pain, stifness on rt hand Time Seen by Provider: 08/18/22 09:35 Source: patient Mode of arrival: Family Vehicle History of Present Illness HPI Narrative: Patient is a 62-year-old male. He is here for evaluation of a left hand/index finger pain and swelling. He stated that started to notice symptoms about 5 weeks ago but is really been over the past couple weeks were things have been the worse. There has been no specific injury to his finger. He has seen an outside provider. Was on prednisone and steroids for concern of a cellulitis versus gout. He was completed the course of this. He thought that things got better during the course of this treatment. He is also had a telemedicine visit with a provider at his primary doctor's office. It was not specifically his primary doctor. They decided to get some blood work and a x-ray. He was not able to schedule this until a couple weeks from now. They also put in a prescription for a longer course of steroids. Patient woke up this morning complaining of tingling in the ulnar nerve distribution of his right hand. He is no specific injury to this area. No fevers. He is no history of gout. Related Data Home Medications Medication Instructions Recorded Confirmed latanoprost 0.005 % eye drops 1 drp EYE-BOTH DAILY 10/16/19 10/16/19 omeprazole 20 mg capsule,delayed 20 mg PO DAILY 10/16/19 10/16/19 release phenylephrine HCl 5 mg tablet 10 mg PO Q4-6H PRN Sinus Symptoms 10/16/19 10/16/19 Previous Rx's Medication Instructions Recorded prednisone 20 mg tablet 40 mg PO DAILY #6 tabs 08/06/22 prednisone 20 mg tablet 20 mg PO DAILY #30 tabs 08/18/22 Allergies Allergy/AdvReac Type Severity Reaction Status Date / Time amoxicillin Allergy Hives Verified 08/18/22 09:24 Review of Systems Constitutional Constitutional: Reports system reviewed and no additional complaints, except as documented Musculoskeletal Musculoskeletal: Reports system reviewed and no additional complaints, except as documented Integumentary/Breasts Skin/Breast: Reports system reviewed and no additional complaints, except as documented Neurologic Neurologic: Reports system reviewed and no additional complaints, except as documented Allergic/Immunologic Allergic/Immunologic: Reports system reviewed and no additional complaints, except as documented Patient History Medical History GERD (gastroesophageal reflux disease) Surgical History (Updated 10/16/19 @ 15:09 by Alena Boykin RN) Status post left foot surgery Social History household members: spouse Smoking Status: Never smoker alcohol intake: current Smoking Status: Never smoker alcohol intake frequency: a few times a week Substance Use Type: does not use Exam Initial Vital Signs Initial Vital Signs: Vital Signs Temperature 99.3 F 08/18/22 09:20 Pulse Rate 65 08/18/22 09:20 Respiratory Rate 18 08/18/22 09:20 Blood Pressure 184/87 H 08/18/22 09:20 Pulse Oximetry 98 08/18/22 09:20 Oxygen Delivery Method Room Air 08/18/22 09:20 HENMT Head: normal to inspection and normocephalic Cardio Pulses: radial pulses present bilaterally Skin Other: No erythema. Neuro Other: Patient does report decreased sensation to light touch in the ulnar nerve distribution of the right hand. Sensation is intact to the left hand. Extrem Other: Patient does have circumferential swelling to the right index finger from the MCP joint distal. He can flex and extend however he is quite a bit of discomfort in all the joints of this finger but it does seem to be primarily focal to the PIP joint. Course Orders Ordered: ED Orders 08/18/22 09:50 XR hand LT min 3V Stat 08/18/22 10:00 Basic Metabolic Panel Stat C-Reactive Protein Quant Stat Complete Blood Count AUTO DIFF Stat Erythrocyte Sedimentation Rate Stat Uric Acid Stat Vital Signs Vital signs: Vital Signs - 8 hr 08/18/22 09:20 08/18/22 11:35 08/18/22 11:37 Temperature 99.3 F Pulse Rate 65 57 L Pulse Rate [Right Radial] 50 L Respiratory Rate 18 Blood Pressure 184/87 H 134/68 Pulse Oximetry 98 98 Oxygen Delivery Method Room Air Room Air MDM - Extremity (Nontraumatic) Lab Data 08/18/22 10:00 08/18/22 10:00 Labs: Lab Results 08/18/22 08/18/22 08/18/22 Range/Units 10:00 10:00 10:00 WBC 9.8 (4.5-11.0) X10^3/uL RBC 4.79 (4.5-5.9) X10^6/uL Hgb 14.7 (13.5-17.5) g/dL Hct 43.2 (41-53) % MCV 90.1 (80-100) fL MCH 30.6 (26-34) PG MCHC 34.0 (30-36) % RDW 14.0 (11.6-14.8) % Plt Count 245 (150-400) X10^3/uL Neut % (Auto) 80.2 H (50-75) % Lymph % (Auto) 12.4 L (25-40) % Oxford % (Auto) 6.7 (3-14) % Eos % (Auto) 0.3 L (2-4) % Baso % (Auto) 0.4 (0-2) % Neut # (Auto) 7900 H (3840-5464) /uL Lymph # (Auto) 1200 (7239-9861) /uL Oxford # (Auto) 700 (0-900) /uL Eos # (Auto) 0 (0-450) /uL Baso # (Auto) 0 (0-100) /uL ESR 2 (0-15) MM/HR Sodium 135 L (137-145) mmol/L Potassium 4.2 (3.4-5.1) mmol/L Chloride 102 (98-107) mmol/L Carbon Dioxide 27 (22-32) mmol/L BUN 15 (9-20) mg/dL Creatinine 0.66 (0.66-1.25) mg/dL Estimated GFR > 60 (>60) mL/min BUN/Creatinine Ratio 22.7 H (6-22) Glucose 118 H (80-110) mg/dL Uric Acid 5.4 (3.5-8.5) mg/dL Calcium 9.0 (8.4-10.2) mg/dL C-Reactive Protein (<1.0) mg/dL 08/18/22 Range/Units 10:00 WBC (4.5-11.0) X10^3/uL RBC (4.5-5.9) X10^6/uL Hgb (13.5-17.5) g/dL Hct (41-53) % MCV (80-100) fL MCH (26-34) PG MCHC (30-36) % RDW (11.6-14.8) % Plt Count (150-400) X10^3/uL Neut % (Auto) (50-75) % Lymph % (Auto) (25-40) % Oxford % (Auto) (3-14) % Eos % (Auto) (2-4) % Baso % (Auto) (0-2) % Neut # (Auto) (7668-6868) /uL Lymph # (Auto) (6038-8664) /uL Oxford # (Auto) (0-900) /uL Eos # (Auto) (0-450) /uL Baso # (Auto) (0-100) /uL ESR (0-15) MM/HR Sodium (137-145) mmol/L Potassium (3.4-5.1) mmol/L Chloride (98-107) mmol/L Carbon Dioxide (22-32) mmol/L BUN (9-20) mg/dL Creatinine (0.66-1.25) mg/dL Estimated GFR (>60) mL/min BUN/Creatinine Ratio (6-22) Glucose (80-110) mg/dL Uric Acid (3.5-8.5) mg/dL Calcium (8.4-10.2) mg/dL C-Reactive Protein < 0.5 (<1.0) mg/dL Imaging Data Extremity x-ray #1: Radiologist's Impression: PROCEDURE:? XR HAND LT MIN 3V ? INDICATIONS:? L index finger swelling ? TECHNIQUE:? 3 views of the hand(s) acquired.? ? COMPARISON:? None. ? FINDINGS:? ? Bones:? No fractures or dislocations.? Carpal bones are normally aligned.? No suspicious bony lesions.? Degenerative changes of the interphalangeal joints.? This is most pronounced at the DIP joint of the little finger.? No erosions. ? Soft tissues:? No suspicious soft tissue calcifications.? ? ? IMPRESSION:? 1. No acute abnormality. 2. Mild degenerative changes of the DIP joints including the index finger, however degenerative changes are most severe at the DIP joint of the little finger.? MDM Narrative Medical decision making narrative: Patient has had symptoms of his left index finger for about the last 5 weeks but really has worsened over the past 7-10 days. He has been on a course of antibiotics and also on 2 courses of steroids. He states that it was the steroids that actually improved his symptoms. He is no history of gout. His findings today show no fractures or dislocations. No foreign bodies. I have low suspicion for flexor tenosynovitis based on his exam. Low suspicion for cellulitis. Low suspicion for gout. No indication for continued antibiotics. This does appear to be some sort of an inflammatory process. He is a follow-up with his primary doctor already scheduled for 10 days from now. The plan will be to put him back on steroids at a low dose for the next 10 days and then he can talk with his primary doctor about whether not to continue to take these were start a taper. He is having numbness in the ulnar nerve distribution of the right hand. This is most likely a separate issue compared to what is going on in his left hand. I do suspect that he is has swelling of his ulnar nerve in the steroid should help with this as well. He was given return precautions. He expressed understanding and agreement. Discharge Plan Departure Patient Disposition: Home Clinical Impression: Finger swelling Instructions: How To Perform RICE (Rest, Ice, Compress, Elevate) Activity Restrictions/Additional Instructions: I do recommend that you take the prednisone until you have your follow-up appointment with your primary doctor. You can at that point aside with your primary doctor about how long you should be on this medicine or the tapering to come off it. Return to the emergency department for new or worsening symptoms. Prescriptions: New prednisone 20 mg tablet 20 mg PO DAILY Qty: 30 0RF No Action prednisone 20 mg tablet 40 mg PO DAILY Qty: 6 0RF latanoprost 0.005 % drops 1 drp EYE-BOTH DAILY omeprazole 20 mg capsule,delayed release(DR/EC) 20 mg PO DAILY phenylephrine HCl 5 mg Tablet 10 mg PO Q4-6H PRN (Reason: Sinus Symptoms) Referrals: Mohsen Sheppard MD [Primary Care Provider] - Stand Alone Forms: Patient Portal/API
[2022-08-18 10:14] LABS: Add Manual Diff / Slide Review NO; Basophils Absolute Auto 0 /uL (0-100); Basophils Percent Auto 0.4 % (0-2); Eosinophils Absolute Auto 0 /uL (0-450); Eosinophils Percent Auto 0.3 % (2-4); Hematocrit 43.2 % (41-53); Hemoglobin 14.7 g/dL (13.5-17.5); Lymphocytes Absolute Auto 1200 /uL (1100-4500); Lymphocytes Percent Auto 12.4 % (25-40); Mean Corpuscular Hemoglobin 30.6 PG (26-34); Mean Corpuscular Volume 90.1 fL (80-100); Monocytes Absolute Auto 700 /uL (0-900); Monocytes Percent Auto 6.7 % (3-14); Neutrophils Absolute Auto 7900 /uL (1500-7000); Neutrophils Percent Auto 80.2 % (50-75); Platelet Count 245 X10^3/uL (150-400); Red Blood Cell Count 4.79 X10^6/uL (4.5-5.9); White Blood Cell Count 9.8 X10^3/uL (4.5-11.0)
[2022-08-18 10:20] LABS: BUN Creatinine Ratio 22.7 (6-22); Blood Urea Nitrogen 15 mg/dL (9-20); Carbon Dioxide 27 mmol/L (22-32); Chloride 102 mmol/L (98-107); Estimated Glomerular Filt Rate > 60 mL/min (>60); Glucose 118 mg/dL (80-110); HEMOLYSIS 38 (0-50); Potassium 4.2 mmol/L (3.4-5.1); Sodium 135 mmol/L (137-145); Uric Acid 5.4 mg/dL (3.5-8.5)
[2022-08-18 10:23] LABS: C-Reactive Protein Quant < 0.5 mg/dL (<1.0)
[2022-08-18 10:40] LABS: Erythrocyte Sedimentation Rate 2 MM/HR (0-15)
[2022-08-18 11:35] VITALS: PULSE 50
[2022-08-18 11:37] VITALS: BP 134/68; PULSE 57; O2SAT 98
== END 2022-08-18 12:06 | disposition home or self-care (01) ==
PROVIDERS: Emergency Provider Emergency Medicine; PCP Family Medicine
DX: M79.89 Other specified soft tissue disorders (principal)
CPT/HCPCS: 36415; 73130; 80048; 84550; 85025; 85651; 86140; 99284

== ENCOUNTER → 2022-10-03 15:47 | Outpatient (CLI) | payer OTHER, SELFPAY ==
[2019-10-16 18:35] VITALS: BMI 29.2
[2022-10-03 17:47] LABS: Add Manual Diff / Slide Review NO; Basophils Absolute Auto 0 /uL (0-100); Basophils Percent Auto 0.7 % (0-2); Eosinophils Absolute Auto 200 /uL (0-450); Eosinophils Percent Auto 3.1 % (2-4); Hematocrit 40.6 % (41-53); Hemoglobin 13.9 g/dL (13.5-17.5); Lymphocytes Absolute Auto 1800 /uL (1100-4500); Lymphocytes Percent Auto 32.9 % (25-40); Mean Corpuscular HGB Conc 34.1 % (30-36); Mean Corpuscular Hemoglobin 31.2 PG (26-34); Mean Corpuscular Volume 91.4 fL (80-100); Monocytes Absolute Auto 500 /uL (0-900); Monocytes Percent Auto 9.6 % (3-14); Neutrophils Absolute Auto 3000 /uL (1500-7000); Neutrophils Percent Auto 53.7 % (50-75); Platelet Count 255 X10^3/uL (150-400); Red Blood Cell Count 4.45 X10^6/uL (4.5-5.9); White Blood Cell Count 5.6 X10^3/uL (4.5-11.0)
[2022-10-03 17:59] LABS: PTT Partial Thromboplastin Tim 31 SECONDS (26-36)
== END ==
PROVIDERS: PCP Family Medicine; Referring Provider Student in an Organized Health Care Education/Training Program; Visit Provider Student in an Organized Health Care Education/Training Program
DX: R23.3 Spontaneous ecchymoses (principal)
CPT/HCPCS: 85025; 85730